=== PATIENT | female | born 2000 | race Caucasian/White ===

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

== ENCOUNTER 2019-06-23 12:20 | Emergency (ER) | payer BC ==
[2019-06-23 12:34] VITALS: BP 132/77
--- NOTE | 2019-06-23 13:00 | UC ---
Head Injury HPI - HPI Summary HPI Summary: 18-year-old female presents with complaints of headache, photophobia, nausea after accidentally being struck in the left side of her head by a piece of wood. States yesterday afternoon she was helping stack firewood when someone accidentally tossed a piece of wood that struck her in the head. No loss of consciousness. Reports history of 2 previous concussions and states her symptoms are similar to those episodes. Denies visual disturbances, phonophobia , dizziness, vertigo, confusion, memory loss, slurred or difficulty speaking, numbness, tingling, or weakness of her arms or legs, or vomiting. - History Of Current Complaint Chief Complaint: UCHeadInjury Stated Complaint: HEAD INJURY Time Seen by Provider: 06/23/19 12:36 Hx Obtained From: Patient Hx Last Menstrual Period: 06/18/19 Pain Intensity: 5 - Allergies/Home Medications Allergies/Adverse Reactions: Allergies Allergy/AdvReac Type Severity Reaction Status Date / Time No Known Allergies Allergy Verified 06/23/19 12:34 PMH/Surg Hx/FS Hx/Imm Hx Previously Healthy: Yes - Denies significant PMH - Surgical History Surgical History: Yes Surgery Procedure, Year, and Place: 2011 RT ELBOW FRACTURE, PINS INSERTED [facility]. 2014, removed pins from right elbow, [facility] - Family History Known Family History: Positive: Cardiac Disease - grandfather - afib, Hypertension - grandfather, Diabetes - Social History Occupation: Employed Full-time Lives: With Family Alcohol Use: None Substance Use Type: None Smoking Status (MU): Never Smoked Tobacco Have You Smoked in the Last Year: No - Immunization History Vaccination Up to Date: Yes Review of Systems All Other Systems Reviewed And Are Negative: Yes Constitutional: Positive: Negative Skin: Positive: Negative Eyes: Positive: Photophobia. Negative: Blurred Vision, Diplopia ENT: Positive: Negative Respiratory: Positive: Negative Cardiovascular: Positive: Negative Gastrointestinal: Positive: Negative Genitourinary: Positive: Negative Musculoskeletal: Positive: Negative Neurological: Positive: Headache. Negative: Weakness, Paresthesia, Numbness Is Patient Immunocompromised?: No Physical Exam - Summary Physical Exam Summary: GENERAL APPEARANCE: Well developed, well nourished, alert and cooperative, and appears to be in no acute distress. HEAD: Atraumatic. Normocephalic. EYES: Conjunctiva clear. No drainage. PERRL, EOM intact. Vision is grossly intact. EARS: External auditory canals and tympanic membranes clear, hearing grossly intact. NOSE: No nasal discharge. THROAT: Pharynx normal No tonsilar inflammation, swelling, exudate, or lesions. Uvula midline. Oral cavity normal. Teeth and gingiva in good general condition. NECK: Neck supple, non-tender without lymphadenopathy. CARDIAC: Normal S1 and S2. No S3, S4 or murmurs. Rhythm is regular. There is no peripheral edema, cyanosis or pallor. Extremities are warm and well perfused. Capillary refill is less than 2 seconds. Peripheral pulses intact. LUNGS: Clear to auscultation without rales, rhonchi, wheezing or diminished breath sounds. ABDOMEN: Positive bowel sounds. Soft, nondistended, nontender. No guarding or rebound. No masses or hepatosplenomegally. MUSKULOSKELETAL: ROM intact to all extremities. No joint erythema or tenderness. Normal muscular development. Normal gait. NEUROLOGICAL: CN II-XII intact. Strength and sensation symmetric and intact throughout. Cerebellar testing normal. SKIN: Skin normal color, texture and turgor with no lesions or eruptions. Triage Information Reviewed: Yes Vital Signs: Initial Vital Signs Temp 97.1 F 06/23/19 12:30 Pulse 96 06/23/19 12:30 Resp 18 06/23/19 12:30 BP 132/77 06/23/19 12:30 Pulse Ox 100 06/23/19 12:30 Vital Signs Reviewed: Yes Head Injury Course/Dx - Course Course Of Treatment: 18-year-old female presents with complaints of headache, photophobia, nausea after accidentally being struck in the left side of her head by a piece of wood. States yesterday afternoon she was helping stack [employer] when someone accidentally tossed a piece of wood that struck her in the head. No loss of consciousness. Reports history of 2 previous concussions and states her symptoms are similar to those episodes. Denies visual disturbances, phonophobia , dizziness, vertigo, confusion, memory loss, slurred or difficulty speaking, numbness, tingling, or weakness of her arms or legs, or vomiting. Afebrile. Vital signs stable. Patient was neurologically intact and her overall exam was unremarkable. Discussed with the patient that without loss of consciousness and a normal neurological exam that there was no indication for radiologic scanning at this time and I'm recommending conservative treatment for a likely concussion without loss of consciousness. She currently does not have a primary care provider therefore she is to follow-up with the [facility] in 7 days if symptoms are not improving. Anticipatory guidance and warning symptoms requiring immediate evaluation in the emergency room were reviewed with the patient. Verbalizes understanding and agrees with plan of care. - Differential Dx/Diagnosis Differential Diagnosis/HQI/PQRI: Cerebral Contusion, Concussion Without LOC, Intracranial Bleed, Skull Fracture Provider Diagnosis: Concussion without loss of consciousness Discharge ED - Sign-Out/Discharge Documenting (check all that apply): Patient Departure All imaging exams completed and their final reports reviewed: No Studies - Discharge Plan Condition: Stable Disposition: HOME Patient Education Materials: Concussion (ED) Forms: *Work Release Referrals: No Primary Care Phys,NOPCP [Primary Care Provider] - [facility] [Outside] - 7 Days (If no improvement in symptoms. Call for appointment.) Additional Instructions: Based on your history and exam you likely have a concussion without loss of consciousness. With a normal neurological exam there is no indication for radiological imaging at this time. The most important thing that she can do to help recover from a concussion is to get plenty of rest. You need to avoid activities that require thinking, concentration, and attention while you are having symptoms. This includes the use of screens including television, commuters, and cell phones. Take acetaminophen (Tylenol) or ibuprofen (Advil, Motrin according to directions as needed for headache. Follow-up with the [facility] in 7 days if symptoms are not improving. Seek immediate medical attention in the emergency room if you develop a severe headache that is not managed with acetaminophen or ibuprofen, have one pupil is larger than the other, he have any loss of consciousness, seizure-like activity , changes in behavior, numbness, tingling, or weakness of your arms or legs, persistent or projectile vomiting, or any worsening of symptoms. - Billing Disposition and Condition Condition: STABLE Disposition: Home
== END 2019-06-23 13:19 | disposition home or self-care (01) ==
LOC: UCEAST 12:20
DX: S06.0X0A Concussion without loss of consciousness, initial encounter (principal); W22.8XXA Striking against or struck by other objects, initial encounter; Y92.9 Unspecified place or not applicable
CPT/HCPCS: 99211; G0463

== ENCOUNTER 2019-08-03 19:01 | Emergency (ER) | payer BC ==
[2019-08-03 19:14] VITALS: BP 117/72
[2019-08-03] MEDS ORDERED: Naproxen TAB* 250 MG PO ONE (19:58)
--- NOTE | 2019-08-03 20:10 | UC ---
Upper Extremity HPI - HPI Summary HPI Summary: 19 yo WF w/ h/o of left elbow pain x few days. 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, denies injury, numbness or tingling - History of Current Complaint Chief Complaint: UCUpperExtremity Stated Complaint: ELBOW PAIN Time Seen by Provider: 08/03/19 19:13 Hx Obtained From: Patient Hx Last Menstrual Period: 07/20/19 Onset/Duration: Sudden Onset, Lasting Days Severity Initially: Moderate Severity Currently: Moderate Pain Intensity: 5 Character: Sharp, Dull, Aching Aggravating Factor(s): Movement, Lifting, Flexion, Extension Alleviating Factor(s): Nothing - Allergies/Home Medications Allergies/Adverse Reactions: Allergies Allergy/AdvReac Type Severity Reaction Status Date / Time No Known Allergies Allergy Verified 08/03/19 19:13 Home Medications: Home Medications Hydrocortisone 0.5% CM(NF) [Hydrocortisone 0.5% CREAM(NF)] 1 applic .SEE ORDER DAILY WITH MEAL 08/03/19 [History Confirmed 08/03/19] PMH/Surg Hx/FS Hx/Imm Hx Previously Healthy: Yes - Surgical History Surgical History: Yes Surgery Procedure, Year, and Place: 2011 RT ELBOW FRACTURE, PINS INSERTED [facility]. 2014, removed pins from right elbow, [facility] - Family History Known Family History: Positive: Cardiac Disease - grandfather - afib, Hypertension - grandfather, Diabetes - Social History Alcohol Use: Rare Substance Use Type: None Smoking Status (MU): Never Smoked Tobacco Have You Smoked in the Last Year: No - Immunization History Vaccination Up to Date: Yes Review of Systems All Other Systems Reviewed And Are Negative: Yes Constitutional: Positive: Negative Skin: Positive: Negative Eyes: Positive: Negative ENT: Positive: Negative Respiratory: Positive: Negative Cardiovascular: Positive: Negative Gastrointestinal: Positive: Negative Genitourinary: Positive: Negative Motor: Positive: Negative Neurovascular: Positive: Negative Musculoskeletal: Positive: Other: - see HPI Neurological: Positive: Paresthesia. Negative: Weakness, Numbness Physical Exam - Summary Physical Exam Summary: Vital Signs Reviewed: Yes Eye Exam: Normal Eyes: Positive: Conjunctiva Clear ENT: Positive: Normal ENT inspection Abdomen: NT/ND Musculoskeletal Exam: TTP over left lateral surface of elbow w/o radiation Neurological Exam: Normal Psychological Exam: Normal Skin Exam: Normal Vital Signs: Initial Vital Signs Temp 36.7 C 08/03/19 19:09 Pulse 87 08/03/19 19:09 Resp 18 08/03/19 19:09 BP 117/72 08/03/19 19:09 Pulse Ox 96 08/03/19 19:09 Upper Extremity Course/Dx - Course Course Of Treatment: XR of left elbow Neg for NEW fx but 2 screws seen in lateral aspect of left humerus w/o obvious displacement, there are some fragments seen inferior to screws and some fragments are lying in the soft tissue region Advised pt to follow up again with ortho who did the surgery. - Differential Dx/Diagnosis Provider Diagnosis: Elbow pain, left Discharge ED - Sign-Out/Discharge Documenting (check all that apply): Patient Departure All imaging exams completed and their final reports reviewed: Yes - Discharge Plan Condition: Stable Disposition: HOME Prescriptions: Naproxen [Naproxen 500 mg tab] 500 mg PO BID 10 Days #20 tablet Patient Education Materials: Swollen Joint (ED) Referrals: No Primary Care Phys,NOPCP [Primary Care Provider] - Additional Instructions: follow up with your orhthopedist - Billing Disposition and Condition Condition: STABLE Disposition: Home
== END 2019-08-03 20:17 | disposition home or self-care (01) ==
LOC: UCEAST 19:01
DX: M25.522 Pain in left elbow (principal); Z98.890 Other specified postprocedural states
CPT/HCPCS: 99212; A9270-GY; G0463